=== PATIENT | male | born 1980 | race Caucasian/White ===

== ENCOUNTER 2021-05-12 19:11 | Outpatient (REF) | payer OTHER, SELFPAY ==
[2021-05-14 14:06] LABS: COVID-19 RT-PCR UVMMC Result Negative (Negative)
== END 2021-05-12 19:12 | disposition home or self-care (01) ==
LOC: LBN 19:11
PROVIDERS: Visit Provider Nurse Practitioner Family
DX: Z20.822 Contact with and (suspected) exposure to COVID-19 (principal); J45.901 Unspecified asthma with (acute) exacerbation
CPT/HCPCS: U0003

== ENCOUNTER 2021-06-14 09:48 | Outpatient (CLI) | payer OTHER, SELFPAY ==
[2021-06-15 19:33] LABS: COVID-19 RT-PCR UVMMC Result Negative (Negative)
== END 2021-06-14 09:49 | disposition home or self-care (01) ==
LOC: LBO 09:50
PROVIDERS: Visit Provider Nurse Practitioner Family
DX: Z20.822 Contact with and (suspected) exposure to COVID-19 (principal)
CPT/HCPCS: U0003

== ENCOUNTER 2021-10-04 15:02 | Outpatient (CLI) | payer OTHER, SELFPAY ==
--- NOTE | 2021-10-04 14:15 | DI.RAD_ITS ---
Exam(s) XR SHOULDER RT COMPLETE 2+V EXAM: XR SHOULDER RT COMPLETE 2+V CLINICAL HISTORY: pain. TECHNIQUE: 2D digital imaging was performed. Two views COMPARISON: No exams were available for comparison FINDINGS: BONES: No acute fracture is present. No bony destructive lesion is seen. JOINTS: No dislocation present. Mild spurring inferior glenoid and inferior humeral head. No signif icant AC joint spurring. SOFT TISSUE: Normal. IMPRESSION: Mild degenerative changes. DATA REPOSITORY: RADIATION DOSE DELIVERED:
== END 2021-10-04 15:03 | disposition home or self-care (01) ==
LOC: DIORS 15:03
PROVIDERS: PCP Family Medicine; Referring Provider Family Medicine; Visit Provider Physician Assistant Surgical
DX: M25.511 Pain in right shoulder (principal); M19.011 Primary osteoarthritis, right shoulder
CPT/HCPCS: 73030

== ENCOUNTER 2021-12-19 00:13 | Outpatient (CLI) | payer OTHER, SELFPAY ==
--- NOTE | 2021-12-19 10:30 | DI.US_ITS ---
APPROVED REPORT EXAM: Comprehensive 2D, Doppler, and color-flow Echocardiogram Patient Location: Out-Patient Distribution Engineering Technologist: Alysia Bruno RDCS (AE) Indications: Family history of bicuspid aortic valve Other Information Study Quality: Adequate Conclusion Normal left ventricular wall thickness and chamber size. Estimated ejection fraction is 60%. Wall m otion is normal Normal right ventricular size and systolic function Both atria are normal in size. There is an atrial septal aneurysm There is no structural or hemodynamically significant valvular disease. Specifically, the aortic va lve is trileaflet without stenosis or regurgitation Estimated right ventricular systolic pressure is 24 mmHg Wall motion Left Ventricle The left ventricle is normal size. The left ventricular systolic function is normal. The left ventric ular ejection fraction is within the normal range. There is normal left ventricular wall thickness. T here is normal LV segmental wall motion. There is no ventricular septal defect visualized. LVEF is 60 %. Right Ventricle The right ventricle is normal size. The right ventricular systolic function is normal. The RVSP is 24 .6mmHg. Atria The left atrium size is normal. The right atrium size is normal. The interatrial septum is intact wit h no evidence for an atrial septal defect. Atrial septal aneurysm is present. Aortic Valve The aortic valve is normal in structure. Aortic valve is trileaflet. There is no aortic valvular sten osis. No aortic regurgitation is present. Mitral Valve The mitral valve is normal in structure. No evidence of mitral valve stenosis. Trace mitral regurgita tion. Tricuspid Valve The tricuspid valve is normal in structure. There is no tricuspid valve stenosis. Trace tricuspid reg urgitation. Pulmonic Valve The pulmonary valve is normal in structure. There is no pulmonic valvular stenosis. There is no pulmo taylor valvular regurgitation. Great Vessels The aortic root is normal in size. Ascending aorta is not well visualized. Aortic arch is normal in c aliber. IVC is normal in size and collapses >50% with inspiration. Pericardium There is no pericardial effusion. 2D Dimensions IVSD d PLAX 0.87 cm M: 0.6-1.2 LV Vol A2C d MOD 136.1 mL LVPW d PLAX 0.91 cm M: 0.6 - 1.2 LV Vol A4C d MOD 120.7 mL LVID d PLAX 5.02 cm M: 4.2 - 5.8 LA vol/ BSA A4C s A-L 22.3 mL/m2 LVDs 3.30 cm M: 2.5 - 4.0 LA Area A4C s MOD 17.60 cm2 Ao Root d 3.01 cm M: 3.1 - 3.7 LV EF A4C MOD 60.7 % RA Area A4C 18.43 cm2 LV EF A2C MOD 57.2 % RA Vol/ BSA A4C s A-L 27.5 mL/m2 LV EF Biplane MOD 58.0 % LV EF Teichholz 62.5 % SV 77.73 mL LVEF (Quezada's) 58.02 % M: 52 - 72 SV Index 39.60 mL/m2 LV Volume 101.12 mL M: 62 - 150 LV Volume Index 51.59 mL/m2 M: 34 - 74 LV Vol Biplane MOD 134.0 mL FS 33.85 % M-Mode TAPSE 2.20 cm (M/F) >1.7 LV Diastology MV E' medial 0.098 (>0.07 m/s) E/A Ratio 1.3 LV E/e MED 7.40 (<14) MV E Vmax 0.72 (0.4-1.3 m/s) MV E' lateral 0.114 (>0.1 m/s) MV A Vmax 0.55 (0.4-1.3 m/s) LV E/e LAT 6.30 (<14) MV E/A Ratio 1.29 MV E/E' medial 7.40 MV E/E' lateral 6.32 Aortic Valve LVOT Area 3.16 cm2 AoV Area Vmax 2.73 cm2 LVOT Vmax 1.06 m/s AoV Area/ BSA (Vmax) 1.39 cm2/m2 LVOT Mean Papa. 0.67 m/s NURY Mean Papa. 2.54 cm2 LVOT Peak Grad 4.5 mmHg NURY Mean Papa. Index 1.29 cm2/m2 LVOT Mean Grad 2.1 mmHg LVOT VTI 0.230 m LVOT Diam s 2.00 cm AoV Vmax 1.22 m/s Velocity Ratio 0.86 AoV Mean Papa. 0.83 m/s AoV Peak Grad 6.0 mmHg LVOT SV 72.66 mL AoV Mean Grad 3.1 mmHg AoV VTI 0.251 m AoV Area VTI 2.90 cm2 AoV Area/ BSA (VTI) 1.48 cm/m2 Mitral Valve MV DT 265 (160-240 msec) MV PHT 77 msec MV Area PHT 2.86 cm2 MV VTI 0.271 m MV Area VTI 2.68 (4.0-6.0 cm2) Pulmonary Valve PV Vmax 1.10 (0.5-1.5 m/s) RVOT Peak Gr. 2.55 mmHg PV Peak Grad 4.8 mmHg RVOT Mean Gr. 1.20 mmHg PV Mean Grad 2.3 mmHg RVOT VTI 0.144 m PV VTI 0.208 m RVOT Vmax 0.80 m/s Tricuspid Valve TR Peak Grad 21.5 mmHg TR Vmax 2.32 m/s RA Pressure 3.00 mmHg RVSP (TR) 24.6 mmHg
== END 2021-12-19 00:33 ==
PROVIDERS: PCP Family Medicine; Visit Provider Family Medicine
DX: Z82.49 Family history of ischemic heart disease and other diseases of the circulatory system (principal)
CPT/HCPCS: 93306

== ENCOUNTER 2023-02-07 04:08 | Outpatient (CLI) | payer OTHER, SELFPAY ==
[2023-02-07 11:30] LABS: ALT 26 U/L (16-63); AST 16 U/L (15-37); Albumin 4.1 g/dL (3.4-5.0); Alkaline Phosphatase 40 U/L (46-116); BUN 19 mg/dL (7-18); Bilirubin, Total 0.6 mg/dL (0.2-1.0); CREATININE 1.1 mg/dL (0.70-1.30); Calcium 9.2 mg/dL (8.5-10.1); Chloride 105 mmol/L (98-107); Cholesterol 226 mg/dL (<200); Estimated GFR 85.95 (mL/min/1.73m2); Glucose 89 mg/dL (74-106); HDL Cholesterol 90 mg/dL (40-60); Potassium 4.7 mmol/L (3.5-5.1); Sodium 140 mmol/L (136-145); Total Protein 7.8 g/dL (6.4-8.2)
[2023-02-07 11:33] LABS: Triglyceride <25 mg/dL (<150)
[2023-02-07 11:44] LABS: LDL CHOLESTEROL 123 mg/dL (<100)
== END 2023-02-07 04:09 | disposition home or self-care (01) ==
PROVIDERS: PCP Family Medicine; Visit Provider Family Medicine
DX: Z13.6 Encounter for screening for cardiovascular disorders (principal); Z00.00 Encounter for general adult medical examination without abnormal findings
CPT/HCPCS: 36415; 80053; 80061; 83721

== ENCOUNTER 2023-11-15 08:58 | Outpatient (CLI) | payer OTHER, SELFPAY ==
[2023-11-19 15:42] LABS: Apolipoprotein B, Serum 113 mg/dL; Beta VLDL Cholesterol Not Detected mg/dL (<15); Beta VLDL Triglycerides Not Detected mg/dL (<15); Cholesterol, Total, CDC 219 mg/dL; Chylomicron Cholesterol Not Detected; Chylomicron Triglycerides Not Detected; HDL Cholesterol, CDC 61 mg/dL (>=40); LDL Cholesterol 141 mg/dL; LDL Triglycerides 23 mg/dL (<=50); Lp(a) Cholesterol 13 mg/dL (<5); LpX Not detected; Triglycerides, CDC 38 mg/dL; VLDL Cholesterol 4 mg/dL (<30); VLDL Triglycerides 7 mg/dL (<120)
== END 2023-11-15 08:59 | disposition home or self-care (01) ==
LOC: LOS 08:58
PROVIDERS: PCP Family Medicine; Referring Provider Family Medicine; Visit Provider Family Medicine
DX: Z00.00 Encounter for general adult medical examination without abnormal findings (principal)
CPT/HCPCS: 36415; 80061; 82172; 82664

== ENCOUNTER → 2024-03-12 15:02 | Outpatient (CLI) | payer OTHER, SELFPAY ==
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
== END ==
PROVIDERS: PCP Family Medicine; Visit Provider Family Medicine
DX: M25.532 Pain in left wrist (principal); S62.014A Nondisplaced fracture of distal pole of navicular [scaphoid] bone of right wrist, initial encounter for closed fracture
CPT/HCPCS: 73110

== ENCOUNTER 2024-04-28 15:34 | Outpatient (CLI) | payer OTHER, SELFPAY ==
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
== END 2024-04-28 15:35 | disposition home or self-care (01) ==
LOC: DIORS 15:34
PROVIDERS: PCP Family Medicine; Visit Provider Student in an Organized Health Care Education/Training Program
DX: S62.012D Displaced fracture of distal pole of navicular [scaphoid] bone of left wrist, subsequent encounter for fracture with routine healing (principal); X58.XXXD Exposure to other specified factors, subsequent encounter
CPT/HCPCS: 73110

== ENCOUNTER 2025-01-21 01:51 | Outpatient (CLI) | payer OTHER, SELFPAY ==
[2025-01-21 12:23] LABS: Abs Immature Grans 0.02 10^3/uL (0.0-0.06); Absolute Basophil Count 0.04 10^3/uL (0.0-0.2); Absolute Eosinophil Count 0.03 10^3/uL (0.0-0.7); Absolute Lymphocyte Count 1.22 10^3/uL (1.2-3.4); Absolute Monocyte Count 0.33 10^3/uL (0.1-0.8); Absolute Neutrophil Count 7.82 10^3/uL (1.2-6.7); Basophils % 0.4 %; Eosinophils % 0.3 %; HCT 41.3 % (40.0-50.0); HGB 13.8 g/dL (13.5-17.5); Immature Grans % 0.2 %; Lymphocytes % 12.9 %; MCH 30.1 pg (27.0-33.0); MCHC 33.4 % (32.0-36.0); MCV 90 fL (80-95); MPV 9.8 fL (8.0-11.0); Monocytes % 3.5 %; Neutrophils % 82.7 %; Platelet Count 279 10^3/uL (130-400); RBC 4.58 10^6/uL (4.36-5.78); RDW 13.2 % (11.8-14.1); RDW-SD 43.5 fL; WBC 9.46 10^3/uL (4.4-10.8)
[2025-01-21 12:40] LABS: Hemoglobin A1C 5.8 % (<5.7)
[2025-01-21 13:53] LABS: ALT 29 U/L (16-63); AST 17 U/L (15-37); Albumin 4.1 g/dL (3.4-5.0); Alkaline Phosphatase 49 U/L (46-116); BUN 28 mg/dL (7-18); Bilirubin, Total 0.5 mg/dL (0.2-1.0); CREATININE 1.2 mg/dL (0.70-1.30); Calcium 9.5 mg/dL (8.5-10.1); Chloride 107 mmol/L (98-107); Estimated GFR 76.48 (mL/min/1.73m2); FREE T4 1.03 ng/dL (0.76-1.46); Glucose 91 mg/dL (74-106); Potassium 5.2 mmol/L (3.5-5.1); Sodium 141 mmol/L (136-145); TSH 1.23 uIU/mL (0.36-3.74); Total Protein 7.5 g/dL (6.4-8.2); Uric Acid 6.1 mg/dL (3.5-7.2)
[2025-01-21 14:31] LABS: Folate 17.7 ng/mL (8.6-20.0); Vitamin B12 625 pg/mL (193-986); Vitamin D 25 Total 55 ng/mL (30-100)
[2025-01-21 22:58] LABS: CRP, High Sensitivity 0.37 mg/L (See Note)
[2025-01-21 23:11] LABS: T3,Free 3.5 pg/mL (2.8-5.3)
[2025-01-22 09:00] LABS: Insulin 5.2 uIU/mL (<29.0)
[2025-01-22 17:26] LABS: Lipoprotein (a) 88 nmol/L (<75)
[2025-01-25 17:23] LABS: Apolipoprotein B, Serum 96 mg/dL; Beta VLDL Cholesterol Not Detected mg/dL (<15); Beta VLDL Triglycerides Not Detected mg/dL (<15); Cholesterol, Total, CDC 223 mg/dL; Chylomicron Cholesterol Not Detected; Chylomicron Triglycerides Not Detected; HDL Cholesterol, CDC 67 mg/dL (>=40); LDL Cholesterol 124 mg/dL; LDL Triglycerides 27 mg/dL (<=50); Lp(a) Cholesterol 9 mg/dL (<5); LpX Not detected; Triglycerides, CDC 114 mg/dL; VLDL Cholesterol 23 mg/dL (<30); VLDL Triglycerides 68 mg/dL (<120)
[2025-01-26 10:18] LABS: Free 37 nmol/mL (25-54)
== END 2025-01-21 01:52 | disposition home or self-care (01) ==
LOC: LBO 01:51
PROVIDERS: PCP Family Medicine; Visit Provider Family Medicine
DX: E78.41 Elevated Lipoprotein(a) (principal); F90.0 Attention-deficit hyperactivity disorder, predominantly inattentive type; E78.5 Hyperlipidemia, unspecified; F31.9 Bipolar disorder, unspecified; R73.01 Impaired fasting glucose; M1A.9XX0 Chronic gout, unspecified, without tophus (tophi); Z00.00 Encounter for general adult medical examination without abnormal findings
CPT/HCPCS: 36415; 80053; 80061; 82306; 82379; 83695; 86141; 82172; 82607; 82664; 82746; 83036; 83525; 84439; 84443; 84481; 84550; 85025